=== PATIENT | male | born 1965 | race African-American/Black ===

== ENCOUNTER 2018-02-01 04:21 | Emergency (ER) | payer MEDICAID, MEDICARE, OTHER ==
[~2018-02-01] VITALS: Ht 188 cm; Wt 112.5 kg
[2018-02-01 04:25] VITALS: BP 129/76
[2018-02-01 04:37] VITALS: BP 129/76
[2018-02-01] MEDS ORDERED: IBUPROFEN600 MG ORAL (04:39)
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
== END 2018-02-01 04:45 | disposition home or self-care (01) ==
LOC: EMR 04:43
DX: M54.5 Low back pain (principal)
CPT/HCPCS: 99283

== ENCOUNTER 2019-08-05 14:51 | Emergency (ER) | payer MEDICARE, MEDICAID ==
[~2019-08-05] VITALS: Ht 190.5 cm; Wt 113.4 kg
[~2019-08-05 14:51] MED LIST: IBUPROFEN600 MG ORAL
[2019-08-05] MEDS ORDERED: Omnipaque-300 100ml vial INJ PRN (15:15)
--- NOTE | 2019-08-05 15:15 | NUR ---
ED Nurse Note: Patient brought in to ED from outside [facility] with complaint of blood with BM. He states that he has had a stomach ache for about 2 hours. Patient currently feels 7-8/10 generalized abdominal pain.
[2019-08-05 15:30] VITALS: BP 126/94
[2019-08-05 16:23] LABS: BASOPHILS % (AUTO) 0.9 % (0.0-2.0); EOSINOPHILS % (AUTO) 2.4 % (0.0-3.0); HEMOGLOBIN 11.8 G/DL (14.2-18.0); LYMPHOCYTES % (AUTO) 27.3 % (20.0-45.0); MEAN CORPUSCULAR VOLUME 74 FL (80-99); MONOCYTES % (AUTO) 10.1 % (1.0-10.0); NEUTROPHILS % (AUTO) 59.3 % (45.0-75.0); PLATELET COUNT 164 K/UL (150-450); RED BLOOD COUNT 5.01 M/UL (4.70-6.10); RED CELL DISTRIBUTION WIDTH 12.2 % (11.6-14.8); WHITE BLOOD COUNT 5.2 K/UL (4.8-10.8)
--- NOTE | 2019-08-05 16:29 | Emergency Room Report ---
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 Patient presents via EMS. Allergies: Coded Allergies: No Known Allergies (Unverified , 02/01/18) Patient History Past Medical History: see triage record Reviewed Nursing Documentation: PMH: Agreed; PSxH: Agreed Nursing Documentation-PMH Past Medical History: No History, Except For Hx Cardiac Problems: Yes - Palpitations Hx Hypertension: Yes Hx Diabetes: Yes History Of Psychiatric Problem: Yes - Schizoaffective Review of Systems All Other Systems: negative except mentioned in HPI Physical Exam Vital Signs Date Time Temp Pulse Resp B/P (MAP) Pulse Ox O2 Delivery O2 Flow Rate FiO2 08/05/19 15:11 98.2 100 16 126/94 (105) 99 Room Air Sp02 EP Interpretation: reviewed, normal General Appearance: well appearing, no apparent distress, alert Head: normocephalic, atraumatic Eyes: bilateral eye PERRL, bilateral eye EOMI ENT: uvula midline, moist mucus membranes Neck: supple, thyroid normal, supple/symm/no masses Respiratory: lungs clear, no respiratory distress, no retraction, no accessory muscle use Cardiovascular #1: normal peripheral pulses, regular rate, rhythm, no edema, no gallop, no murmur Gastrointestinal: non tender, soft, no guarding, no rebound Rectal: normal rectal tone, heme negative stool, other - [employer] K Spine Musculoskeletal: normal inspection Neurologic: alert, oriented x3 Psychiatric: mood/affect normal Skin: no rash, warm/dry Medical Decision Making Diagnostic Impression: Primary Impression: Enteritis ER Course 54-year-old male presents with generalized abdominal pain differential diagnosis includes appendicitis, diverticulitis, enteritis Patient with atypical chest pain radiating from his abdomen after a bowel movement, low suspicion for ACS, EKG negative troponin negative chest x-ray negative Reevaluation 6:19 PM, patient is on his cell phone in no acute distress he is currently canceling his credit card due to a fraud alert After patient was finished with his phone call, counseled patient that he may most likely have a viral enteritis, patient is insistent he wants antibiotics Patient is aware that he may kill his good bacteria will provide him with antiemetics, disposition home with return precautions Patient feels better Laboratory Tests Test 08/05/19 15:40 White Blood Count 5.2 K/UL (4.8-10.8) Red Blood Count 5.01 M/UL (4.70-6.10) Hemoglobin 11.8 G/DL (14.2-18.0) L Hematocrit 37.0 % (42.0-52.0) L Mean Corpuscular Volume 74 FL (80-99) L Mean Corpuscular Hemoglobin 23.5 PG (27.0-31.0) L Mean Corpuscular Hemoglobin Concent 31.9 G/DL (32.0-36.0) L Red Cell Distribution Width 12.2 % (11.6-14.8) Platelet Count 164 K/UL (150-450) Mean Platelet Volume 7.0 FL (6.5-10.1) Neutrophils (%) (Auto) 59.3 % (45.0-75.0) Lymphocytes (%) (Auto) 27.3 % (20.0-45.0) Monocytes (%) (Auto) 10.1 % (1.0-10.0) H Eosinophils (%) (Auto) 2.4 % (0.0-3.0) Basophils (%) (Auto) 0.9 % (0.0-2.0) Prothrombin Time 9.7 SEC (9.30-11.50) Prothrombin Time INR 0.9 (0.9-1.1) PTT 24 SEC (23-33) Sodium Level 139 MMOL/L (136-145) Potassium Level 4.3 MMOL/L (3.5-5.1) Chloride Level 102 MMOL/L (98-107) Carbon Dioxide Level 26 MMOL/L (21-32) Anion Gap 12 mmol/L (5-15) Blood Urea Nitrogen 15 mg/dL (7-18) Creatinine 1.0 MG/DL (0.55-1.30) Estimate Glomerular Filtration Rate > 60 mL/min (>60) Glucose Level 246 MG/DL (74-106) H Calcium Level 9.9 MG/DL (8.5-10.1) Total Bilirubin 0.3 MG/DL (0.2-1.0) Aspartate Amino Transferase (AST) 37 U/L (15-37) Alanine Aminotransferase (ALT) 96 U/L (12-78) H Alkaline Phosphatase 96 U/L (46-116) Troponin I 0.000 ng/mL (0.000-0.056) Total Protein 7.9 G/DL (6.4-8.2) Albumin 4.2 G/DL (3.4-5.0) Globulin 3.7 g/dL Albumin/Globulin Ratio 1.1 (1.0-2.7) Lipase 316 U/L (73-393) EKG Diagnostic Results EKG Time: 15:09 EP Interpretation: NSR, rate 99, QTc 423, no acute ST elevations, normal axis Chest X-Ray Diagnostic Results Chest X-Ray Diagnostic Results : Chest X-Ray Ordered: Yes # of Views/Limited/Complete: 1 View Indication: Other - abdominal pain EP Interpretation: Yes Interpretation: no consolidation, no effusion, no pneumothorax, no acute cardiopulmonary disease Impression: No acute disease Electronically Signed by: Wally Arroyo MD CT/MRI/US Diagnostic Results CT/MRI/US Diagnostic Results : Impression Procedure: CT Abdomen Pelvis w/Contrast Clinical Indication: Generalized abdominal pain, achy in nature, bloody stool Technique: No oral contrast utilized, per emergency room physician request IV administration nonionic contrast. Venous phase spiral acquisition obtained through the abdomen and pelvis. Multiplanar reconstructions were generated. Total dose length product 1938 mGycm. CTDIvol(s) 29 mGy. Dose reduction achieved using automated exposure control Comparison: none Findings: Lack of enteric contrast limits assessment of the GI tract. The appendix is normal. No evidence of colonic diverticulosis or diverticulitis. There is mild prominence of the distal duodenum and proximal jejunum. There is equivocal minimal wall thickening of the proximal jejunum. No free or loculated intraperitoneal gas or fluid is evident. The distal esophagus, stomach, duodenum are unremarkable. The liver is diffusely hypoattenuating,, consistent with fatty change. No focal abnormality demonstrated. The gallbladder is nondistended. No biliary ductal dilatation. The pancreas, spleen, adrenals, left kidney are unremarkable. The right kidney demonstrates a lower pole subcentimeter low-attenuation lesion which is too small to characterize. No renal or ureteral calculi, hydronephrosis or hydroureter demonstrated. The bladder is nondistended. There is apparent mild bladder wall thickening. No pelvic mass or adenopathy. The included lung bases are grossly clear. The bones demonstrate degenerative spondylosis changes. There is some deformity of the right sacroiliac region, with ankylosis of the sacroiliac joint. There is also deformity of the left pubic region. Impression: Limited assessment of the GI tract, due to lack of enteric contrast demonstration Mild prominence of the distal duodenum and proximal jejunum and equivocal minimal wall thickening of proximal jejunum, could indicate mild duodenum/enteritis Apparent mild bladder wall thickening, probably an artifact of under distention but cystitis not completely excludable. Correlate with laboratory findings and clinical findings No definite acute process otherwise Fatty liver Pelvic deformity, may be posttraumatic. Correlate with clinical history The CT scanner at [facility] is accredited by the [employer] and the scans are performed using protocols designed to limit radiation exposure to as low as reasonably achievable to attain images of sufficient resolution adequate for diagnostic evaluation. Dictated By: Carlton Davis MD Electronically Signed By: Carlton Davis MD Signed Date/Time 08/05/19 [id number] CC: Wally Arroyo MD Last Vital Signs Date Time Temp Pulse Resp B/P (MAP) Pulse Ox O2 Delivery O2 Flow Rate FiO2 08/05/19 15:11 98.2 100 16 126/94 (105) 99 Room Air Disposition: HOME, SELF-CARE Condition: Stable Scripts Amoxicillin/Potassium Clav 875-125* (AUGMENTIN 875-125 TABLET*) 1 Each Tablet 1 TAB ORAL TWICE A DAY, #14 TAB Prov: Wally Arroyo MD 08/05/19 Ondansetron (Zofran) 4 Mg Tablet 4 MG ORAL Q8H PRN for Nausea & Vomiting, #10 TAB 0 Refills Prov: Wally Arroyo MD 08/05/19 Referrals: [facility] Patient Instructions: Bloody Diarrhea, Dehydration, Adult, [id number], Viral Gastroenteritis, Adult, [id number] Additional Instructions: The patient was provided with discharge instructions, notified to follow-up with a primary care doctor and or specialist in the next 24-48 hours, and to return to the ED if they have worsening of their symptoms. Please note that this report is being documented using [employer] technology. This can lead to erroneous entry secondary to incorrect interpretation by the dictating instrument. Wally Arroyo MD Aug 05, 2019 16:29
[2019-08-05 16:35] LABS: INR 0.9 (0.9-1.1)
--- NOTE | 2019-08-05 16:39 | NUR ---
Was a witness to rectal examination w/ Dr. Arroyo
[2019-08-05 16:46] LABS: ANION GAP 12 mmol/L (5-15); BLOOD UREA NITROGEN 15 mg/dL (7-18); CALCIUM 9.9 MG/DL (8.5-10.1); CARBON DIOXIDE 26 MMOL/L (21-32); CHLORIDE 102 MMOL/L (98-107); POTASSIUM 4.3 MMOL/L (3.5-5.1); SODIUM 139 MMOL/L (136-145)
--- NOTE | 2019-08-05 16:48 | Diagnostic Imaging Report ---
Indication: Chest pain Technique: One view of the chest Comparison: none Findings: Lungs and pleural spaces are clear. Heart size is normal. Impression: No acute process
[2019-08-05 16:51] LABS: ALANINE AMINOTRANSFERASE 96 U/L (12-78); ALBUMIN 4.2 G/DL (3.4-5.0); ALBUMIN/GLOBULIN RATIO 1.1 (1.0-2.7); ALKALINE PHOSPHATASE 96 U/L (46-116); ASPARTATE AMINO TRANSFERASE 37 U/L (15-37); BILIRUBIN,TOTAL 0.3 MG/DL (0.2-1.0)
--- NOTE | 2019-08-05 18:02 | Diagnostic Imaging Report ---
Clinical Indication: Generalized abdominal pain, achy in nature, bloody stool Technique: No oral contrast utilized, per emergency room physician request IV administration nonionic contrast. Venous phase spiral acquisition obtained through the abdomen and pelvis. Multiplanar reconstructions were generated. Total dose length product 1938 mGycm. CTDIvol(s) 29 mGy. Dose reduction achieved using automated exposure control Comparison: none Findings: Lack of enteric contrast limits assessment of the GI tract. The appendix is normal. No evidence of colonic diverticulosis or diverticulitis. There is mild prominence of the distal duodenum and proximal jejunum. There is equivocal minimal wall thickening of the proximal jejunum. No free or loculated intraperitoneal gas or fluid is evident. The distal esophagus, stomach, duodenum are unremarkable. The liver is diffusely hypoattenuating,, consistent with fatty change. No focal abnormality demonstrated. The gallbladder is nondistended. No biliary ductal dilatation. The pancreas, spleen, adrenals, left kidney are unremarkable. The right kidney demonstrates a lower pole subcentimeter low-attenuation lesion which is too small to characterize. No renal or ureteral calculi, hydronephrosis or hydroureter demonstrated. The bladder is nondistended. There is apparent mild bladder wall thickening. No pelvic mass or adenopathy. The included lung bases are grossly clear. The bones demonstrate degenerative spondylosis changes. There is some deformity of the right sacroiliac region, with ankylosis of the sacroiliac joint. There is also deformity of the left pubic region. Impression: Limited assessment of the GI tract, due to lack of enteric contrast demonstration Mild prominence of the distal duodenum and proximal jejunum and equivocal minimal wall thickening of proximal jejunum, could indicate mild duodenum/enteritis Apparent mild bladder wall thickening, probably an artifact of under distention but cystitis not completely excludable. Correlate with laboratory findings and clinical findings No definite acute process otherwise Fatty liver Pelvic deformity, may be posttraumatic. Correlate with clinical history The CT scanner at [facility] is accredited by the [employer] and the scans are performed using protocols designed to limit radiation exposure to as low as reasonably achievable to attain images of sufficient resolution adequate for diagnostic evaluation.
[2019-08-05] MEDS ORDERED: AUGMENTIN 875-1 EAC1 ORAL (18:21)
[2019-08-05] MEDS ORDERED: ZOFRAN4 MG ORAL (18:21)
[2019-08-05 18:28] LABS: APPEARANCE,URINE CLEAR; BILIRUBIN, URINE NEGATIVE (NEGATIVE); COLOR,URINE PALE YELLOW; GLUCOSE, URINE (UA) 4+ (NEGATIVE); KETONES,URINE NEGATIVE (NEGATIVE); LEUKOCYTE ESTERASE ,URINE NEGATIVE (NEGATIVE); NITRITE,URINE NEGATIVE (NEGATIVE); PH,URINE 5 (4.5-8.0); PROTEIN,URINE 1+ (NEGATIVE); UROBILINOGEN,URINE NORMAL MG/DL (0.0-1.0)
[2019-08-05 19:38] VITALS: BP 149/98
--- NOTE | 2019-08-05 19:39 | NUR ---
ED Nurse Note: Patient is being discharged from medical care. D/C instruction given to patient. Contacted patient's boarding care and transporation (taxi)will be arranged. Patient awake, alert, oriented x 4. All questions were answered. Patient is getting dressing in the room.
--- NOTE | 2019-08-06 13:46 | Cardiology Report ---
APPROVED REPORT EKG Measurement Heart [id number] Normal sinus rhythm Normal ECG
== END 2019-08-05 20:00 | disposition home or self-care (01) ==
LOC: EDBD 14:51 → EMR 18:15
DX: K52.9 Noninfective gastroenteritis and colitis, unspecified (principal); I10 Essential (primary) hypertension; E11.9 Type 2 diabetes mellitus without complications; F25.9 Schizoaffective disorder, unspecified; R00.2 Palpitations
CPT/HCPCS: 36415; 71045; 74177; 80053; 81003; 83690; 84484; 85025; 85610; 85730; 86850; 86900; 86901; 93005; 96361; 96374; 99284; J2405; J7030; Q9967

== ENCOUNTER 2020-07-17 11:26 | Emergency (ER) | payer MEDICARE, MEDICAID ==
[~2020-07-17] VITALS: Ht 190.5 cm; Wt 104.3 kg
[2020-07-17 11:26] VITALS: BP 133/81
[~2020-07-17 11:26] MED LIST changes: +AUGMENTIN 875-1 EAC1 ORAL; +ZOFRAN4 MG ORAL
--- NOTE | 2020-07-17 11:26 | NUR ---
ED Nurse Note: Pt EDUARDA [id number] from an assisted living facility c/o abd pain x 3 days. Per pt, he has not been able to keep food down but denies N/V/D. AAOx4, verbally responsive. No SOB, on room air.
--- NOTE | 2020-07-17 11:36 | NUR ---
ED Nurse Note: IV line established. Blood sent to lab.
[2020-07-17 11:56] LABS: BASOPHILS % (AUTO) 1.3 % (0.0-2.0); EOSINOPHILS % (AUTO) 1.2 % (0.0-3.0); HEMATOCRIT 43.9 % (42.0-52.0); LYMPHOCYTES % (AUTO) 20.5 % (20.0-45.0); MEAN CORPUSCULAR VOLUME 77 FL (80-99); MONOCYTES % (AUTO) 8.8 % (1.0-10.0); NEUTROPHILS % (AUTO) 68.1 % (45.0-75.0); PLATELET COUNT 197 K/UL (150-450); RED BLOOD COUNT 5.72 M/UL (4.70-6.10); RED CELL DISTRIBUTION WIDTH 14.4 % (11.6-14.8); WHITE BLOOD COUNT 6.1 K/UL (4.8-10.8)
--- NOTE | 2020-07-17 12:00 | NUR ---
ED Nurse Note: Urine sent to lab.
[2020-07-17 12:09] LABS: ANION GAP 15 mmol/L (5-15); BLOOD UREA NITROGEN 17 mg/dL (7-18); CALCIUM 9.6 MG/DL (8.5-10.1); CARBON DIOXIDE 20 MMOL/L (21-32); CHLORIDE 107 MMOL/L (98-107); CREATININE 1.3 MG/DL (0.55-1.30); POTASSIUM 4.2 MMOL/L (3.5-5.1); SODIUM 142 MMOL/L (136-145)
[2020-07-17 12:13] LABS: ALANINE AMINOTRANSFERASE 122 U/L (12-78); ALBUMIN 4.3 G/DL (3.4-5.0); ALBUMIN/GLOBULIN RATIO 1.1 (1.0-2.7); ALKALINE PHOSPHATASE 90 U/L (46-116); ASPARTATE AMINO TRANSFERASE 44 U/L (15-37); BILIRUBIN,TOTAL 0.5 MG/DL (0.2-1.0)
--- NOTE | 2020-07-17 12:23 | Emergency Room Report ---
History of Present Illness General Chief Complaint: Abdominal Pain Source: Patient Present Illness HPI 55 YO male with hx of cardiac palpitations, HTN, DM and psychological disorder presents to the ED brought by ambulance from a board and care with c/o 8/10 in severity Abdominal pain. Pt. reports inability to "keep anything down" he describes decreased appetite and nausea. He denies vomiting. Pt. denies diarrhea and reports constipation. Pt .reports last BM was yesterday. Pt .reports having constipation x 1 month. Pt. denies fevers or chills. he denies blood in the stool or black tarry stools. He reports abdominal pain is in the upper mid abdomen and points to the epigastric area. He denies having ill contacts with similar symptoms. Denies CP, Palpitations, LOC, AMS, dizziness, Changes in Vision, Sensation, paresthesias, or a sudden severe headache. Allergies: Coded Allergies: No Known Allergies (Unverified , 02/01/18) COVID-19 Screening Contact w/high risk pt: No Experienced COVID-19 symptoms?: No COVID-19 Testing performed CHEFS: No Patient History Past Medical History: see triage record Past Surgical History: none Pertinent Family History: none Reviewed Nursing Documentation: PMH: Agreed; PSxH: Agreed Nursing Documentation-PMH Hx Cardiac Problems: Yes - Palpitations Hx Hypertension: Yes Hx Diabetes: Yes History Of Psychiatric Problem: Yes Review of Systems All Other Systems: negative except mentioned in HPI Physical Exam Vital Signs Date Time Temp Pulse Resp B/P (MAP) Pulse Ox O2 Delivery O2 Flow Rate FiO2 07/17/20 11:22 99.0 127 18 133/81 (98) 97 Room Air Sp02 EP Interpretation: reviewed, normal General Appearance: no apparent distress, alert, GCS 15, non-toxic Head: normocephalic, atraumatic Eyes: bilateral eye normal inspection, bilateral eye PERRL ENT: hearing grossly normal, normal voice Neck: full range of motion Respiratory: chest non-tender, lungs clear, normal breath sounds, no respi ratory distress, no accessory muscle use, no wheezing, speaking full sentences Cardiovascular #1: regular rate, rhythm, no edema, normal capillary refill, tachycardia Gastrointestinal: normal bowel sounds, non tender, soft, no peritonitis, no guarding, hernia - umbillical hernia that is easily reduced. no erythema, warmth or significant overlying tenderness, other - abdomen appears mildly distended. Genitourinary: normal inspection, no CVA tenderness Musculoskeletal: back normal, normal range of motion, gait/station normal, non- tender Neurologic: alert, motor strength/tone normal, oriented x3, sensory intact, responsive, speech normal Psychiatric: judgement/insight normal Skin: no rash, normal color Medical Decision Making PA Attestation Dr. Brasher Is my supervising Physician whom patient management has been discussed with. Diagnostic Impression: Primary Impression: Abdominal pain Qualified Codes: R10.9 - Unspecified abdominal pain ER Course 55 YO male with hx of cardiac palpitations, HTN, DM and psychological disorder presents to the ED brought by ambulance from a board and care with c/o 8/10 in severity Abdominal pain. Pt. reports inability to "keep anything down" he describes decreased appetite and nausea. He denies vomiting. Pt. denies diarrhea and reports constipation. Pt .reports last BM was yesterday. Pt .reports having constipation x 1 month. Pt. denies fevers or chills. he denies blood in the stool or black tarry stools. He reports abdominal pain is in the upper mid abdomen and points to the epigastric area. He denies having ill contacts with similar symptoms. Denies CP, Palpitations, LOC, AMS, dizziness, Changes in Vision, Sensation, paresthesias, or a sudden severe headache. Ddx considered but are not limited to Diverticulitis, acute appendicitis, diarrhea,UC, PUD, GE, pancreatitis, gallstone,Hernia or strangulated/incarcerated hernia, gastritis, bowel obstruction, mesenteric ischemia just to name a few. Vital signs: are WNL, pt. is afebrile. H&PE are most consistent with abdominal pain in pt. without evidence of acute abdomen. Pt. non-toxic in appearance. ORDERS: -CBC, CMP, LIPASE: unremarkable -Lactic Acid: 3.7 elevated -Troponin: 0.00 -UA--most indicative of contamination: presence of equal amounts of bacteria and squamous cells, no elevation in inflammatory markers, nitrite negative. - CT ABD/Pelvis without contrast: "Hepatic cysts ptosis and mild concentric wall thickening of the distal sigmoid colon and rectum without associated inflammatory changes but is nonspecific and can be seen with chronic constipation." per radiology -- CT ABD/Pelvis W. Contrast: Canceled per radiologist. Dr. Harris- Radiologist communicated via telephone at [phone] non-contrast that there is low suspicion for thrombotic cause for pt. symptoms, and that radiological findings do not suggest need for repeat scan w. Contrast. Radiologist canceled CT w. contrast. and does not recommend re-scanning pt. ED INTERVENTIONS: - Pepcid PO -Lidocaine PO - Colace PO -Lactulose PO D/w pt. radiological DISCHARGE: At this time pt. is stable for d/c to home. Will provide printed patient care instructions, and any necessary prescriptions. Care plan and follow up instructions have been discussed with the patient prior to discharge. Labs Test 07/17/20 11:36 07/17/20 12:00 White Blood Count 6.1 K/UL (4.8-10.8) Red Blood Count 5.72 M/UL (4.70-6.10) Hemoglobin 13.0 G/DL (14.2-18.0) Hematocrit 43.9 % (42.0-52.0) Mean Corpuscular Volume 77 FL (80-99) Mean Corpuscular Hemoglobin 22.8 PG (27.0-31.0) Mean Corpuscular Hemoglobin Concent 29.6 G/DL (32.0-36.0) Red Cell Distribution Width 14.4 % (11.6-14.8) Platelet Count 197 K/UL (150-450) Mean Platelet Volume 7.6 FL (6.5-10.1) Neutrophils (%) (Auto) 68.1 % (45.0-75.0) Lymphocytes (%) (Auto) 20.5 % (20.0-45.0) Monocytes (%) (Auto) 8.8 % (1.0-10.0) Eosinophils (%) (Auto) 1.2 % (0.0-3.0) Basophils (%) (Auto) 1.3 % (0.0-2.0) Prothrombin Time 10.8 SEC (9.30-11.50) Prothromb Time International Ratio 1.0 (0.9-1.1) Activated Partial Thromboplast Time 24 SEC (23-33) Sodium Level 142 MMOL/L (136-145) Potassium Level 4.2 MMOL/L (3.5-5.1) Chloride Level 107 MMOL/L (98-107) Carbon Dioxide Level 20 MMOL/L (21-32) Anion Gap 15 mmol/L (5-15) Blood Urea Nitrogen 17 mg/dL (7-18) Creatinine 1.3 MG/DL (0.55-1.30) Estimat Glomerular Filtration Rate > 60 mL/min (>60) Glucose Level 241 MG/DL (74-106) Lactic Acid Level 3.70 mmol/L (0.4-2.0) Calcium Level 9.6 MG/DL (8.5-10.1) Magnesium Level 1.8 MG/DL (1.8-2.4) Total Bilirubin 0.5 MG/DL (0.2-1.0) Aspartate Amino Transf (AST/SGOT) 44 U/L (15-37) Alanine Aminotransferase (ALT/SGPT) 122 U/L (12-78) Alkaline Phosphatase 90 U/L (46-116) Troponin I 0.000 ng/mL (0.000-0.056) Total Protein 8.2 G/DL (6.4-8.2) Albumin 4.3 G/DL (3.4-5.0) Globulin 3.9 g/dL Albumin/Globulin Ratio 1.1 (1.0-2.7) Lipase 335 U/L (73-393) Urine Color Yellow Urine Appearance Clear Urine pH 5 (4.5-8.0) Urine Specific [place] 1.025 (1.005-1.035) Urine Protein 2+ (NEGATIVE) Urine Glucose (UA) 4+ (NEGATIVE) Urine Ketones 1+ (NEGATIVE) Urine Blood Negative (NEGATIVE) Urine Nitrite Negative (NEGATIVE) Urine Bilirubin Negative (NEGATIVE) Urine Urobilinogen Normal MG/DL (0.0-1.0) Urine Leukocyte Esterase Negative (NEGATIVE) Urine RBC 0 /HPF (0 - 0) Urine WBC 0-2 /HPF (0 - 0) Urine Squamous Epithelial Cells Occasional /LPF Urine Bacteria Occasional /HPF (NONE) Urine Mucus Few /LPF (NONE/OCC) Urine Opiates Screen Negative (NEGATIVE) Urine Barbiturates Screen Negative (NEGATIVE) Phencyclidine (PCP) Screen Negative (NEGATIVE) Urine Amphetamines Screen Negative (NEGATIVE) Urine Benzodiazepines Screen Negative (NEGATIVE) Urine Cocaine Screen Negative (NEGATIVE) Urine Marijuana (THC) Screen Negative (NEGATIVE) EKG Diagnostic Results Rate: tachycardiac - 101 bpm Rhythm: NSR ST Segments: no acute changes ASA given to the pt in ED: No PA Scribe Text This Interpretation was scribed by TC Brown. Chest X-Ray Diagnostic Results Chest X-Ray Diagnostic Results : Chest X-Ray Ordered: Yes # of Views/Limited/Complete: 1 View Indication: Other - abdominal pain PA Xray: Interpretation reviewed, by supervising MD, and agrees with findings. Interpretation: no consolidation, no effusion, no pneumothorax, no acute cardiopulmonary disease Impression: No acute disease Electronically Signed by: Kait Brown PA-C CT/MRI/US Diagnostic Results CT/MRI/US Diagnostic Results : Imaging Test Ordered: CT Abdomen and Pelvis without contrast Impression " IMPRESSION: Limited examination of the upper abdomen due to motion artifact. Within these limitations: 1. Hepatic steatosis. 2. Mild concentric wall thickening of the distal sigmoid colon and rectum without associated inflammatory changes, which is nonspecific but can be seen with chronic constipation. ." --Per official radiology report- Please see report for specific details. Last Vital Signs Date Time Temp Pulse Resp B/P (MAP) Pulse Ox O2 Delivery O2 Flow Rate FiO2 07/17/20 11:26 99.0 127 18 133/81 97 Room Air Disposition: HOME, SELF-CARE Condition: Stable Scripts Famotidine* (Pepcid 20mg tablet*) 20 Mg Tablet 20 MG ORAL DAILY for Gerd, #20 TAB 0 Refills Prov: Kait Brown 07/17/20 Docusate Sodium* (COLACE*) 100 Mg Capsule 100 MG ORAL THREE TIMES A DAY for 10 Days, #30 CAP Prov: Kait Brown 07/17/20 Patient Instructions: Abdominal Pain, Adult Kait Brown Jul 17, 2020 12:23
[2020-07-17 13:06] LABS: APPEARANCE,URINE CLEAR; BILIRUBIN, URINE NEGATIVE (NEGATIVE); GLUCOSE, URINE (UA) 4+ (NEGATIVE); KETONES,URINE 1+ (NEGATIVE); LEUKOCYTE ESTERASE ,URINE NEGATIVE (NEGATIVE); NITRITE,URINE NEGATIVE (NEGATIVE); PH,URINE 5 (4.5-8.0); PROTEIN,URINE 2+ (NEGATIVE); UROBILINOGEN,URINE NORMAL MG/DL (0.0-1.0)
[2020-07-17 13:14] LABS: COLOR,URINE YELLOW
--- NOTE | 2020-07-17 13:15 | NUR ---
ED Nurse Note: Pt taken to CT.
[2020-07-17] MEDS ORDERED: Omnipaque-300 100ml vial INJ PRN (13:30)
--- NOTE | 2020-07-17 13:36 | NUR ---
ED Nurse Note: Pt returned from CT.
--- NOTE | 2020-07-17 13:48 | Diagnostic Imaging Report ---
Indication: Reason For Exam: PAIN Technique: Single AP view of the chest. Comparison: Chest radiograph dated 08/05/2019 Findings: The cardiomediastinal silhouette is within normal limits. There is no focal consolidation, pneumothorax or pleural effusion. Osseous structures demonstrate no acute abnormality. IMPRESSION: No radiographic evidence of acute cardiopulmonary process.
--- NOTE | 2020-07-17 14:17 | Diagnostic Imaging Report ---
CT ABDOMEN AND PELVIS WITHOUT CONTRAST INDICATION: Abdominal pain TECHNIQUE: Continuous helical transaxial imaging of the abdomen and pelvis was obtained from the lung bases to the pubic symphysis without intravenous contrast administration. Coronal 2-D reformats were also obtained. Study obtained in a Siemens sensation [address] Automatic Exposure Control was utilized. Total Dose length Product (DLP): [address] Dose Index Volume (CTDIvol): 18 mGy COMPARISON: CT abdomen pelvis dated 08/05/2019 FINDINGS: Examination is limited due to motion artifact. Lower chest:: Bibasilar subsegmental atelectasis. Hepatobiliary:: Liver is diffusely hypoattenuating. Genitourinary:: Urinary bladder again demonstrates mild concentric wall thickening. Adrenals:: Unremarkable Pancreas:: Unremarkable Gastrointestinal:: Appendix is normal. No evidence of obstruction. Mild concentric wall thickening of the distal sigmoid colon and rectum, a nonspecific finding without associated inflammatory changes. Spleen: : Unremarkable. Peritoneum:: No free air or free fluid. Vasculature:: Limited in the absence of intravenous contrast. No significant aortoiliac or mesenteric atherosclerotic calcifications. Bones and soft tissues:: There are multilevel discogenic degenerative changes of the visualized spine. Redemonstration of pelvic deformity with remodeling of the left superior and inferior pubic rami. Partial ankylosis of the right sacroiliac joint is again noted. IMPRESSION: Limited examination of the upper abdomen due to motion artifact. Within these limitations: 1. Hepatic steatosis. 2. Mild concentric wall thickening of the distal sigmoid colon and rectum without associated inflammatory changes, which is nonspecific but can be seen with chronic constipation. The CT scanner at [facility] is accredited by the [employer] and the scans are performed using protocols designed to limit radiation exposure to as low as reasonably achievable to attain images of sufficient resolution adequate for diagnostic evaluation.
[2020-07-17] MEDS ORDERED: COLACE100 MG ORAL (15:55)
[2020-07-17] MEDS ORDERED: FAMOTIDINE20 MG ORAL (15:55)
[2020-07-17] MEDS ORDERED: Docusate 100mg cap ORAL ONE (16:00)
[2020-07-17] MEDS ORDERED: Lactulose 20gm/30ml UDC ORAL ONE (16:00)
[2020-07-17 16:21] VITALS: BP 135/74
--- NOTE | 2020-07-17 16:21 | NUR ---
ED Nurse Note: Pt cleared by ERMD for discharge. DC instructions/prescription was given and explained to pt and verbalized understanding of teachings. All medical deviecs such as ID band and IV line removed. Pt is AAO x4, ambulatory and left with all personal belongings. Taxi voucher provided.
--- NOTE | 2020-07-18 15:57 | Cardiology Report ---
APPROVED REPORT EKG Measurement Heart [id number] IN [id number] <Conclusion> Sinus tachycardia Otherwise normal ECG
== END 2020-07-17 16:21 | disposition home or self-care (01) ==
LOC: EDBD 11:26 → EMR 14:16
DX: R10.9 Unspecified abdominal pain (principal); R00.2 Palpitations; I10 Essential (primary) hypertension; E11.9 Type 2 diabetes mellitus without complications; K76.0 Fatty (change of) liver, not elsewhere classified
CPT/HCPCS: 36415; 71045; 74176; 80053; 80307; 81003; 83605; 83690; 83735; 84484; 85025; 85610; 85730; 93005; 96374; 96375; 99284; J2405; J7040; S0028